=== PATIENT | female | born 1945 | race Caucasian/White ===

== ENCOUNTER 2018-05-31 11:06 | Emergency (ER) | payer OTHER, BC ==
[~2018-05-31] VITALS: Ht 160 cm; Wt 78.0 kg
[~2018-05-31 11:06] MED LIST: Amoxicillin PO; Biaxin PO; Calcium Carbonate,Ca PO; Osteo-Biflex,Flex-A- PO; Protonix PO; SYNTHROID75 MCG PO; Theragran PO; Vicodin,Norco 5/325 PO
[2018-05-31 14:00] VITALS: BP 158/71
== END 2018-05-31 14:20 | disposition home or self-care (01) ==
LOC: EME 11:06
DX: S01.21XA Laceration without foreign body of nose, initial encounter (principal); S00.03XA Contusion of scalp, initial encounter; W01.0XXA Fall on same level from slipping, tripping and stumbling without subsequent striking against object, initial encounter; Y93.01 Activity, walking, marching and hiking; Z23 Encounter for immunization
CPT/HCPCS: 70450; 70486; 93005; 99281; 99284